=== PATIENT | male | born 1955 | race Hispanic/Latino ===

== ENCOUNTER 2020-09-30 14:48 | Inpatient (IN) | payer MEDICARE ==
[2020-09-30 15:18] LABS: #Basophils 0.1 thou/uL (0.0-0.2); #Eosinphils 0.2 thou/uL (0.0-0.7); #Monocytes 0.5 thou/uL (0.11-0.59); #Neutrophils 8.6 thou/uL (1.40-6.50); %Basophils 0.6 % (0.0-1.0); %Eosinophils 1.9 % (0.0-10.0); %Lymphocytes 17.7 % (21.0-51.0); %Monocytes 4.2 % (0.0-10.0); %Neutrophils 75.6 % (42.0-75.0); Hemoglobin 14.2 g/dL (14.0-18.0); Mean Corpuscular Hemoglobin 32.2 pg (27.0-31.0); Mean Corpuscular Volume 94.6 fL (78.0-98.0); Mean Platelet Volume 10.4 fL (7.4-10.4); Platelet Count 157 thou/uL (130-400); RBC Distribution Width 12.2 % (11.5-14.5); Red Blood Cell (RBC) Count 4.41 mill/uL (4.70-6.10); White Blood Cell (WBC) Count 11.4 thou/uL (4.8-10.8)
[2020-09-30 15:39] LABS: ALT (SGPT) 21 U/L (8-55); AST (SGOT) 35 U/L (5-34); Albumin 4.4 g/dL (3.4-4.8); Alkaline Phosphatase 74 U/L (40-110); Anion Gap 17 mmol/L (10-20); BUN (Urea Nitrogen) 10 mg/dL (8.4-25.7); Bilirubin, Total 0.9 mg/dL (0.2-1.2); CK (CPK) 146 U/L (30-200); Calc. Creatinine Clearance 0 mL/min (70-130); Calcium 9.2 mg/dL (7.8-10.44); Carbon Dioxide 25 mmol/L (23-31); Chloride 103 mmol/L (98-107); Globulin 3.6 g/dL (2.4-3.5); Glucose 99 mg/dL (80-115); Potassium 4.6 mmol/L (3.5-5.1); Sodium 140 mmol/L (136-145)
[2020-09-30 18:11] LABS: Bilirubin Negative (Negative); Blood, Urine Negative (Negative); Clarity Clear (Clear); Glucose, Urine (Dipstick) Normal (Negative); Ketone, Urine 20 mg/dL (Negative); Leukocyte Negative Leu/uL (Negative); Nitrite Negative (Negative); Protein, Urine (Dipstick) Negative (Neg-Trace); Specific Gravity, Urine 1.013 (1.002-1.036); Urobilinogen Normal mg/dL (Less than 2); pH, Urine 6.5 (5.0-9.0)
[2020-09-30 18:34] LABS: Acetaminophen Less than 6.0 mcg/mL (10.0-30.0); Alcohol Less than 10 mg/dL (Less than 10); Salicylate Less than 8.0 mg/dL (15.0-30.0)
[2020-09-30] MEDS ORDERED: Lorazepam 2 MG/ML VIAL ONE (19:00)
[2020-09-30] MEDS ORDERED: Multivitamins, Adult 10 ML, Thiamine HCl 100 MG, Folic Acid 1 MG in Dextrose 5 %-0.45 %... IV SCH (19:00)
[2020-09-30 19:16] LABS: Digoxin 0.83 ng/mL (0.8-2.0)
[2020-09-30] MEDS ORDERED: Piperacillin/Tazobactam 4.5 GM in Sodium Chloride 0.9% 100 ML IVPB SCH (22:15)
[2020-09-30] MEDS ORDERED: Piperacillin/Tazobactam 4.5 GM VIAL ONE (22:27)
[2020-09-30] MEDS: Sodium Chloride 0.9% 1,000 ML IV SCH (23:07)
[2020-09-30 23:14] LABS: Troponin I 0.022 ng/mL (< 0.028)
[2020-10-01 03:06] VITALS: BMI 23.6
[2020-10-01 05:22] LABS: #Basophils 0.1 thou/uL (0.0-0.2); #Eosinphils 0.3 thou/uL (0.0-0.7); #Lymphocytes 2.9 thou/uL (1.20-3.40); #Monocytes 0.9 thou/uL (0.11-0.59); #Neutrophils 5.6 thou/uL (1.40-6.50); %Basophils 0.6 % (0.0-1.0); %Eosinophils 3.4 % (0.0-10.0); %Lymphocytes 29.9 % (21.0-51.0); %Monocytes 8.9 % (0.0-10.0); %Neutrophils 57.3 % (42.0-75.0); Hemoglobin 13.1 g/dL (14.0-18.0); Mean Corpuscular HGB CONC 33.6 g/dL (32.0-36.0); Mean Corpuscular Hemoglobin 31.7 pg (27.0-31.0); Mean Corpuscular Volume 94.3 fL (78.0-98.0); Mean Platelet Volume 9.9 fL (7.4-10.4); Platelet Count 138 thou/uL (130-400); RBC Distribution Width 12.4 % (11.5-14.5); Red Blood Cell (RBC) Count 4.14 mill/uL (4.70-6.10); White Blood Cell (WBC) Count 9.8 thou/uL (4.8-10.8)
[2020-10-01 05:41] LABS: Anion Gap 12 mmol/L (10-20); BUN (Urea Nitrogen) 7 mg/dL (8.4-25.7); Calc. Creatinine Clearance 70 mL/min (70-130); Carbon Dioxide 24 mmol/L (23-31); Chloride 106 mmol/L (98-107); Glucose 120 mg/dL (80-115); Potassium 3.4 mmol/L (3.5-5.1); Sodium 139 mmol/L (136-145)
[2020-10-01 05:58] LABS: SARS-CoV-2 PCR by NAA Not Detected (NotDetected)
[2020-10-01] MEDS: Piperacillin/Tazobactam 4.5 GM in Sodium Chloride 0.9% 100 ML IVPB SCH ×3 (06:04→21:46)
[2020-10-01] MEDS: Sodium Chloride 0.9% 1,000 ML IV SCH ×2 (09:06→21:17)
[2020-10-01] MEDS ORDERED: Magnevist 469MG/ML 20 ML VIAL ONE (12:08)
[2020-10-01] MEDS ORDERED: Aspirin 325 MG TAB PO SCH (13:15)
[2020-10-01] MEDS ORDERED: levETIRAcetam 500 MG TAB PO SCH (13:15)
[2020-10-01] MEDS ORDERED: Amlodipine 5 mg/Benazepril 20 mg CAP PO SCH (13:15)
[2020-10-01] MEDS ORDERED: Digoxin 0.125 MG TAB PO SCH (13:15)
[2020-10-01] MEDS: Enoxaparin Sodium 40 MG/0.4 ML SYRINGE SC SCH (13:52)
[2020-10-01] MEDS: levETIRAcetam 500 MG TAB PO SCH (20:22)
[2020-10-01] MEDS ORDERED: FLU VACC QS2020-21(65YR UP)/PF 240 MCG/0.7 ML SYRINGE IM ONE (21:00)
[2020-10-02] MEDS: Piperacillin/Tazobactam 4.5 GM in Sodium Chloride 0.9% 100 ML IVPB SCH ×2 (05:39→14:26)
[2020-10-02] MEDS ORDERED: Digoxin 0.125 MG TAB PO SCH (09:00)
[2020-10-02 09:41] LABS: Anion Gap 13 mmol/L (10-20); BUN (Urea Nitrogen) 7 mg/dL (8.4-25.7); Calc. Creatinine Clearance 59 mL/min (70-130); Calcium 8.3 mg/dL (7.8-10.44); Carbon Dioxide 26 mmol/L (23-31); Chloride 106 mmol/L (98-107); Glucose 95 mg/dL (80-115); Potassium 3.6 mmol/L (3.5-5.1); Sodium 141 mmol/L (136-145)
[2020-10-02] MEDS: Multivitamin W/ Minerals 1 TAB PO SCH (10:19)
[2020-10-02] MEDS: Aspirin 325 MG TAB PO SCH (10:19)
[2020-10-02] MEDS: Thiamine 100 MG TAB PO SCH (10:20)
[2020-10-02] MEDS: Amlodipine 5 mg/Benazepril 20 mg CAP PO SCH (10:20)
[2020-10-02] MEDS: levETIRAcetam 500 MG TAB PO SCH ×2 (10:25→20:32)
[2020-10-02] MEDS: Enoxaparin Sodium 40 MG/0.4 ML SYRINGE SC SCH (10:25)
[2020-10-02] MEDS: Sodium Chloride 0.9% 1,000 ML IV SCH ×2 (10:28→20:32)
[2020-10-02 16:14] LABS: Anion Gap 13 mmol/L (10-20); BUN (Urea Nitrogen) 7 mg/dL (8.4-25.7); Calc. Creatinine Clearance 53 mL/min (70-130); Calcium 8.3 mg/dL (7.8-10.44); Carbon Dioxide 27 mmol/L (23-31); Chloride 107 mmol/L (98-107); Glucose 106 mg/dL (80-115); Magnesium 1.7 mg/dL (1.6-2.6); Potassium 4.1 mmol/L (3.5-5.1); Sodium 143 mmol/L (136-145)
[2020-10-03] MEDS: Acetaminophen 325 MG TAB PO PRN ×2 (00:55→20:19)
[2020-10-03] MEDS: Sodium Chloride 0.9% 1,000 ML IV SCH ×2 (06:01→18:56)
[2020-10-03] MEDS: Amlodipine 5 mg/Benazepril 20 mg CAP PO SCH (09:37)
[2020-10-03] MEDS: Enoxaparin Sodium 40 MG/0.4 ML SYRINGE SC SCH (09:38)
[2020-10-03] MEDS: Aspirin 325 MG TAB PO SCH (09:38)
[2020-10-03] MEDS: levETIRAcetam 500 MG TAB PO SCH ×2 (09:39→20:19)
[2020-10-03] MEDS: Multivitamin W/ Minerals 1 TAB PO SCH (09:40)
[2020-10-03] MEDS: Thiamine 100 MG TAB PO SCH (09:40)
[2020-10-04] MEDS: Thiamine 100 MG TAB PO SCH (10:01)
[2020-10-04] MEDS: Acetaminophen 325 MG TAB PO PRN ×2 (10:02→15:34)
[2020-10-04] MEDS: levETIRAcetam 500 MG TAB PO SCH ×2 (10:02→21:17)
[2020-10-04] MEDS: Apixaban 5 MG TAB PO SCH ×2 (10:02→21:18)
[2020-10-04] MEDS: Multivitamin W/ Minerals 1 TAB PO SCH (10:02)
[2020-10-04] MEDS: Amlodipine 5 mg/Benazepril 20 mg CAP PO SCH (10:02)
[2020-10-05] MEDS: Thiamine 100 MG TAB PO SCH (08:42)
[2020-10-05] MEDS: Acetaminophen 325 MG TAB PO PRN (08:43)
[2020-10-05] MEDS: levETIRAcetam 500 MG TAB PO SCH (08:44)
[2020-10-05] MEDS: Multivitamin W/ Minerals 1 TAB PO SCH (08:44)
[2020-10-05] MEDS: Apixaban 5 MG TAB PO SCH (08:44)
[2020-10-05] MEDS: Amlodipine 5 mg/Benazepril 20 mg CAP PO SCH (10:26)
[2020-10-05] MEDS ORDERED: Lidocaine 1% (PF) 30 ML VIAL SC SCH (13:30)
[2020-10-05 16:10] VITALS: BP 138/66; TEMP 97.7
[2020-10-05 16:19] LABS: Synovial Fluid, Protein 4.7 g/dL (Not Available)
[2020-10-05 16:24] LABS: RBC Count-Automated (BF) 2167 /cu.mm; WBC/Nucleated-Auto (BF) 19479 uL
[2020-10-05 16:26] LABS: BF Color Yellow; Body Fluid Source Synovial Fluid; Clarity Cloudy/Turbid (Clear); Tube # EDTA
[2020-10-05 16:28] LABS: BF Segmented Neutrophils 80 %; Cell Count Non Hematic 14 %; Lymphocytes 6 %
== END 2020-10-05 18:34 | disposition home or self-care (01) | DRG 101 ==
LOC: EDBD 14:48 → ERS 14:48 → ERHOLD 19:31 → 3SE 23:19
PROVIDERS: ADMIT Student in an Organized Health Care Education/Training Program; ATTEND Emergency Medicine
PROC: HZ2ZZZZ Detoxification Services for Substance Abuse Treatment (ICD-10-PCS; principal; 2020-09-30)
PROC: 0S9D3ZZ Drainage of Left Knee Joint, Percutaneous Approach (ICD-10-PCS; 2020-10-05)
DX: G40.89 Other seizures (principal); F10.239 Alcohol dependence with withdrawal, unspecified; I50.22 Chronic systolic (congestive) heart failure; I48.11 Longstanding persistent atrial fibrillation; Y90.0 Blood alcohol level of less than 20 mg/100 ml; G93.89 Other specified disorders of brain; Z20.822 Contact with and (suspected) exposure to COVID-19; Z23 Encounter for immunization; E78.5 Hyperlipidemia, unspecified; I11.0 Hypertensive heart disease with heart failure; I45.5 Other specified heart block; I48.0 Paroxysmal atrial fibrillation; M10.062 Idiopathic gout, left knee; Z79.82 Long term (current) use of aspirin; Z79.01 Long term (current) use of anticoagulants; Z79.899 Other long term (current) drug therapy; Z86.73 Personal history of transient ischemic attack (TIA), and cerebral infarction without residual deficits; M25.462 Effusion, left knee
CPT/HCPCS: 36415; 70450; 70553; 71045; 80048; 80053; 80162; 80177; 80307; 81003; 82140; 82550; 82945; 83605; 83690; 83735; 84145; 84157; 84484; 85025; 85060; 87040; 87070; 87086; 87205; 87635; 89051; 89060; 90471; 90662; 93005; 93010; 93306; 95712; 95819; 95957; 96365; 96366; 96375; A9579; G0008; J1650; J2001; J2060; J2543; J3411; J3490; J7042; U0003; U0005

== ENCOUNTER 2020-10-28 16:37 | Emergency (ER) | payer MEDICARE ==
[2020-10-28 17:27] LABS: #Basophils 0.1 thou/uL (0.0-0.2); #Eosinphils 0.9 thou/uL (0.0-0.7); #Lymphocytes 3.6 thou/uL (1.20-3.40); #Monocytes 0.6 thou/uL (0.11-0.59); #Neutrophils 6.5 thou/uL (1.40-6.50); %Basophils 0.9 % (0.0-1.0); %Eosinophils 7.6 % (0.0-10.0); %Lymphocytes 30.5 % (21.0-51.0); %Monocytes 5.3 % (0.0-10.0); %Neutrophils 55.8 % (42.0-75.0); Hemoglobin 13.4 g/dL (14.0-18.0); Mean Corpuscular HGB CONC 32.9 g/dL (32.0-36.0); Mean Corpuscular Hemoglobin 31.1 pg (27.0-31.0); Mean Corpuscular Volume 94.4 fL (78.0-98.0); Mean Platelet Volume 9.9 fL (7.4-10.4); Platelet Count 180 thou/uL (130-400); RBC Distribution Width 13.3 % (11.5-14.5); Red Blood Cell (RBC) Count 4.31 mill/uL (4.70-6.10); White Blood Cell (WBC) Count 11.7 thou/uL (4.8-10.8)
[2020-10-28 17:43] LABS: ALT (SGPT) 12 U/L (8-55); AST (SGOT) 26 U/L (5-34); Albumin 4.1 g/dL (3.4-4.8); Alkaline Phosphatase 78 U/L (40-110); Anion Gap 18 mmol/L (10-20); BUN (Urea Nitrogen) 7 mg/dL (8.4-25.7); Bilirubin, Total 0.7 mg/dL (0.2-1.2); Calc. Creatinine Clearance 0 mL/min (70-130); Carbon Dioxide 22 mmol/L (23-31); Chloride 101 mmol/L (98-107); Globulin 3.7 g/dL (2.4-3.5); Glucose 136 mg/dL (80-115); Potassium 3.5 mmol/L (3.5-5.1); Protein, Total 7.8 g/dL (5.8-8.1); Sodium 137 mmol/L (136-145)
[2020-10-28] MEDS ORDERED: HYDROcodone/Acetaminophen 5/325 mg Tablet ONE (17:58)
[2020-10-28] MEDS ORDERED: Ampicillin/Sulbactam 3 GM in Sodium Chloride 0.9% 100 ML IVPB SCH (19:15)
== END 2020-10-28 20:20 | disposition home or self-care (01) ==
LOC: ERS 16:37
DX: M02.341 Reiter's disease, right hand (principal); I10 Essential (primary) hypertension; E78.5 Hyperlipidemia, unspecified; Z86.73 Personal history of transient ischemic attack (TIA), and cerebral infarction without residual deficits; Z79.01 Long term (current) use of anticoagulants; Z79.82 Long term (current) use of aspirin; Z79.899 Other long term (current) drug therapy
CPT/HCPCS: 36415; 80053; 83605; 85025; 85652; 86140; 87040; 96374; J0295; J3490

== ENCOUNTER 2021-12-26 01:29 | Inpatient (IN) | payer MEDICARE ==
[2021-12-26 02:07] LABS: #Basophils 0.1 thou/uL (0.0-0.2); #Eosinphils 0.7 thou/uL (0.0-0.7); #Lymphocytes 3.2 thou/uL (1.20-3.40); #Monocytes 0.8 thou/uL (0.11-0.59); #Neutrophils 3.7 thou/uL (1.40-6.50); %Basophils 1.1 % (0.0-1.0); %Eosinophils 8.1 % (0.0-10.0); %Monocytes 9.2 % (0.0-10.0); %Neutrophils 43.7 % (42.0-75.0); Hemoglobin 15.3 g/dL (14.0-18.0); Mean Corpuscular Hemoglobin 33.7 pg (27.0-31.0); Mean Platelet Volume 8.5 fL (7.4-10.4); Platelet Count 192 thou/uL (130-400); RBC Distribution Width 12.5 % (11.5-14.5); Red Blood Cell (RBC) Count 4.53 mill/uL (4.70-6.10); White Blood Cell (WBC) Count 8.5 thou/uL (4.8-10.8)
[2021-12-26 02:33] LABS: ALT (SGPT) 51 U/L (8-55); AST (SGOT) 81 U/L (5-34); Albumin 4.4 g/dL (3.4-4.8); Alkaline Phosphatase 73 U/L (40-110); Anion Gap 13 mmol/L (10-20); BUN (Urea Nitrogen) 7 mg/dL (8.4-25.7); Bilirubin, Total 0.9 mg/dL (0.2-1.2); Calc. Creatinine Clearance 0 mL/min (70-130); Calcium 9.3 mg/dL (7.8-10.44); Carbon Dioxide 27 mmol/L (23-31); Chloride 96 mmol/L (98-107); Globulin 3.7 g/dL (2.4-3.5); Glucose 117 mg/dL (80-115); Potassium 4.2 mmol/L (3.5-5.1); Protein, Total 8.1 g/dL (5.8-8.1); Sodium 132 mmol/L (136-145)
[2021-12-26] MEDS ORDERED: Aspirin 325 MG TAB ONE (03:24)
[2021-12-26] MEDS ORDERED: Bisacodyl 5 MG TAB PO PRN (03:36)
[2021-12-26] MEDS ORDERED: HYDROcodone/Acetaminophen 5/325 mg Tablet PO PRN (03:36)
[2021-12-26] MEDS ORDERED: Acetaminophen 325 MG TAB PO PRN (03:36)
[2021-12-26] MEDS ORDERED: Lorazepam 2 MG/ML VIAL SLOW IVP PRN (03:40)
[2021-12-26] MEDS ORDERED: Metoprolol Tartrate 25 MG TAB PO SCH (04:00)
[2021-12-26 04:53] LABS: Magnesium 1.6 mg/dL (1.6-2.6)
[2021-12-26] MEDS ORDERED: Metoprolol Tartrate 25 MG TAB ONE (06:12)
[2021-12-26] MEDS ORDERED: Aspirin 81 mg Enteric Coated Tablet ONE (10:47)
[2021-12-26] MEDS ORDERED: Folic Acid 1 MG TAB ONE (10:48)
[2021-12-26] MEDS ORDERED: Thiamine 100 MG TAB ONE (10:48)
[2021-12-26] MEDS ORDERED: Clopidogrel Bisulfate 75 MG TAB ONE (10:48)
[2021-12-26] MEDS: Folic Acid 1 MG TAB PO SCH (10:56)
[2021-12-26] MEDS: Apixaban 5 MG TAB PO SCH ×2 (10:56→21:48)
[2021-12-26] MEDS: Clopidogrel Bisulfate 75 MG TAB PO SCH (10:56)
[2021-12-26] MEDS: Thiamine 100 MG TAB PO SCH (10:56)
[2021-12-26] MEDS: Aspirin 81 mg Enteric Coated Tablet PO SCH (10:56)
[2021-12-26 13:44] LABS: Syphilis Antibody Nonreactive (Nonreactive); Syphilis Antibody Index 0.06 S/CO (<1.00 Non-Reactive)
[2021-12-26 16:11] LABS: SARS-CoV-2 PCR by NAA Not Detected (NotDetected)
[2021-12-26 16:15] LABS: Bacteria/HPF None Seen HPF (None Seen); Bilirubin Negative (Negative); Blood, Urine Trace (Negative); Clarity Clear (Clear); Glucose, Urine (Dipstick) Normal (Negative); Ketone, Urine Negative (Negative); Leukocyte 25 Leu/uL (Negative); Nitrite Negative (Negative); Protein, Urine (Dipstick) 70 mg/dL (Neg-Trace); RBC/HPF 0-3 HPF (0-3); Specific Gravity, Urine 1.015 (1.002-1.036); Squamous Epithelial 0-3 HPF (0-3)
[2021-12-26 16:22] LABS: Amphetamine Not Detected (NotDetected); Barbiturates Screen Not Detected (NotDetected); Benzodiazepine Screen Not Detected (NotDetected); Cocaine Metabolite Screen Not Detected (NotDetected); Methadone Not Detected (NotDetected); Methamphetamine Not Detected (NotDetected); Opiate Screen Not Detected (NotDetected); Oxycodone Screen Not Detected (NotDetected); Phencyclidine (PCP) Not Detected (NotDetected); THC/Cannabinoid Screen Not Detected (NotDetected); Tricyclic Screen Not Detected (NotDetected)
[2021-12-26 17:00] VITALS: BMI 25.6
[2021-12-26] MEDS ORDERED: Atorvastatin Calcium 40 MG TAB PO SCH (21:00)
[2021-12-26] MEDS: Metoprolol Tartrate 25 MG TAB PO SCH (21:48)
[2021-12-27 04:46] LABS: #Basophils 0.1 thou/uL (0.0-0.2); #Eosinphils 0.5 thou/uL (0.0-0.7); #Lymphocytes 2.7 thou/uL (1.20-3.40); #Neutrophils 5.5 thou/uL (1.40-6.50); %Basophils 0.9 % (0.0-1.0); %Eosinophils 5.4 % (0.0-10.0); %Lymphocytes 27.6 % (21.0-51.0); %Monocytes 9.9 % (0.0-10.0); %Neutrophils 56.3 % (42.0-75.0); Hemoglobin 15.5 g/dL (14.0-18.0); Mean Corpuscular HGB CONC 33.1 g/dL (32.0-36.0); Mean Corpuscular Volume 99.6 fL (78.0-98.0); Mean Platelet Volume 8.6 fL (7.4-10.4); Platelet Count 201 thou/uL (130-400); RBC Distribution Width 12.6 % (11.5-14.5); Red Blood Cell (RBC) Count 4.69 mill/uL (4.70-6.10); White Blood Cell (WBC) Count 9.8 thou/uL (4.8-10.8)
[2021-12-27 05:24] LABS: ALT (SGPT) 43 U/L (8-55); AST (SGOT) 52 U/L (5-34); Alkaline Phosphatase 65 U/L (40-110); Anion Gap 11 mmol/L (10-20); BUN (Urea Nitrogen) 11 mg/dL (8.4-25.7); Bilirubin, Total 0.9 mg/dL (0.2-1.2); Calc. Creatinine Clearance 64 mL/min (70-130); Calcium 9.5 mg/dL (7.8-10.44); Carbon Dioxide 32 mmol/L (23-31); Cardiac Risk 1.9 (Less than 4.5); Chloride 97 mmol/L (98-107); Cholesterol 129 mg/dl (< 200 Desired); Globulin 3.6 g/dL (2.4-3.5); Glucose 117 mg/dL (80-115); HDL Cholesterol 67 mg/dL (>60 Neg Risk); LDL Cholesterol, Calculated 54 mg/dL; Potassium 4.2 mmol/L (3.5-5.1); Protein, Total 7.6 g/dL (5.8-8.1); Sodium 136 mmol/L (136-145); Triglycerides 38 mg/dL (Less than 150)
[2021-12-27] MEDS: Aspirin 81 mg Enteric Coated Tablet PO SCH (08:48)
[2021-12-27] MEDS: Apixaban 5 MG TAB PO SCH (08:48)
[2021-12-27] MEDS: Clopidogrel Bisulfate 75 MG TAB PO SCH (08:48)
[2021-12-27] MEDS: Metoprolol Tartrate 25 MG TAB PO SCH (08:49)
[2021-12-27] MEDS: Thiamine 100 MG TAB PO SCH (08:49)
[2021-12-27] MEDS: Folic Acid 1 MG TAB PO SCH (08:49)
[2021-12-27] MEDS ORDERED: hydrALAZINE 20 MG/ML VIAL SLOW IVP PRN (08:51)
[2021-12-27] MEDS ORDERED: Loratadine 10 MG TAB PO PRN (08:51)
[2021-12-27] MEDS ORDERED: Cepastat Lozenges 1 LOZ PO PRN (08:51)
[2021-12-27] MEDS ORDERED: Loperamide HCl 2 MG CAP PO PRN (08:51)
[2021-12-27] MEDS ORDERED: GUAIFENESIN SF SOLN 200 MG/10 ML UDCUP PO PRN (08:51)
[2021-12-27] MEDS ORDERED: Sodium Chloride 0.65% Nasal 44 ML BOT EA NARE PRN (08:51)
[2021-12-27] MEDS ORDERED: Ondansetron PF 4 MG/2 ML Vial IVP PRN (08:51)
[2021-12-27] MEDS ORDERED: Calcium Carbonate 500 MG ChewTAB PO PRN (08:51)
[2021-12-27 12:22] LABS: ANA Symphony (Qualitative) Negative (Negative); ANA Symphony (Quantitative) 0.3 Ratio (< 0.7 Negative)
[2021-12-27 12:46] LABS: CCP IgG Antibody 2.5 EliAU/mL (<7 Negative); Rheumatoid Factor IgA Antibody 3.6 IU/mL (<14 Negative); Rheumatoid Factor IgM Antibody 2.3 IU/mL (<3.5 Negative)
[2021-12-27 16:57] VITALS: BP 140/88; TEMP 98
== END 2021-12-27 18:40 | disposition home or self-care (01) | DRG 308 ==
LOC: ERS 01:29 → ERHOLD 03:11 → OBSVTOIN 09:37 → 2SW 16:56
PROVIDERS: ADMIT Internal Medicine; ATTEND Internal Medicine
DX: I48.0 Paroxysmal atrial fibrillation (principal); G93.41 Metabolic encephalopathy; G45.9 Transient cerebral ischemic attack, unspecified; Z20.822 Contact with and (suspected) exposure to COVID-19; F10.10 Alcohol abuse, uncomplicated; I10 Essential (primary) hypertension; K21.9 Gastro-esophageal reflux disease without esophagitis; R29.6 Repeated falls; R13.10 Dysphagia, unspecified; E78.5 Hyperlipidemia, unspecified; G40.909 Epilepsy, unspecified, not intractable, without status epilepticus; G93.89 Other specified disorders of brain; I69.991 Dysphagia following unspecified cerebrovascular disease; Z91.14 Patient's other noncompliance with medication regimen
CPT/HCPCS: 36415; 36416; 70450; 70551; 80053; 80061; 80306; 81001; 83090; 83520; 83735; 84443; 84484; 85025; 86038; 86200; 86225; 86780; 93005; 93306; 95712; 95819; 95957; G0378; U0003; U0005